=== PATIENT | female | born 1960 | race Caucasian/White ===

== ENCOUNTER → 2017-10-23 | Outpatient (CLI) | payer OTHER ==
[2017-10-23 14:11] LABS: BARBITURATES NEG (NEG); BENZODIAZEPINES POS (NEG); CANNABINOIDS POS (NEG); COCAINE NEG (NEG); METHADONE NEG (NEG); OPIATES NEG (NEG); PHENCYCLIDINE NEG (NEG)
[2017-10-23 14:12] LABS: AMPHETAMINE/METHAMPHETAMINE NEG (NEG); ETHANOL, URINE NEG (NEG)
[2017-10-23 14:28] LABS: ALBUMIN 4.1 g/dL (3.4-5.0); ALBUMIN/GLOBULIN RATIO 1.1 (1.0-1.7); ALK PHOS 74 U/L (46-116); ALT (SGPT) 17 U/L (14-59); ANION GAP 9 (6-14); AST (SGOT) 14 U/L (15-37); BLOOD UREA NITROGEN 21 mg/dL (7-20); BUN/CREATININE RATIO 19 (6-20); CALCIUM 9.6 mg/dL (8.5-10.1); CARBON DIOXIDE 27 mmol/L (21-32); CHLORIDE 105 mmol/L (98-107); CREATININE 1.1 mg/dL (0.6-1.0); GLUCOSE 88 mg/dL (70-99); POTASSIUM 4.7 mmol/L (3.5-5.1); SODIUM 141 mmol/L (136-145); TOTAL BILIRUBIN 0.3 mg/dL (0.2-1.0); TOTAL PROTEIN 7.8 g/dL (6.4-8.2)
[2017-10-23 14:38] LABS: THYROID STIM HORMONE (TSH) 0.613 uIU/mL (0.358-3.74)
[2017-10-23 15:28] LABS: SEDIMENTATION RATE 6 (0-25)
== END | disposition home or self-care (01) ==
LOC: US 12:59
DX: I73.9 Peripheral vascular disease, unspecified (principal); G43.009 Migraine without aura, not intractable, without status migrainosus
CPT/HCPCS: 36415; 80053; 80307; 84443; 85651; 93925

== ENCOUNTER → 2017-11-24 | Outpatient (CLI) | payer OTHER ==
--- NOTE | 2017-11-24 15:47 | KCIC ---
Carotid doppler ultrasound History: Blurred vision, migraine headaches Multiple grayscale, color, and duplex spectral analysis waveform sonographic images were acquired of the carotid, subclavian, and vertebral arteries. Comparison: None Findings: RIGHT: PSV cm/sec EDV cm/sec Common carotid artery 68 27 Maximal internal carotid artery 82 28 Subclavian artery External carotid artery 56 Vertebral artery 53 ICA/CCA ratio 124 LEFT: PSV cm/sec EDV cm/sec Common carotid artery 66 21 Maximum internal carotid artery 67 26 Subclavian artery External carotid artery 88 Vertebral artery 23 ICA/CCA ratio 1.24 Velocities used to determine stenosis are known to correlate with NASCET angiographic criteria. There is antegrade flow in the bilateral vertebral arteries. There is moderate plaque bilaterally of the carotid bulbs, no significant stenosis demonstrated on grayscale or color images. There is other scattered plaque of the proximal internal and external carotid arteries and common carotid arteries. Impression: 1. There is moderate plaque of the bilateral carotid bulbs. There is no evidence of a hemodynamically significant stenosis. Electronically signed by: Momo Cabral MD (11/24/2017 3:43 PM) [facility]
--- NOTE | 2017-11-24 17:08 | KCIC ---
UPPER EXT ARTERIAL BILAT History: Upper extremity ischemia, peripheral arterial disease Comparison: None. Findings: Multiple grayscale, color, duplex spectral analysis waveform images of the upper extremity arteries bilaterally are submitted. There are triphasic waveforms of the upper extremity arteries bilaterally other than monophasic waveform of the proximal right radial artery. Distal right radial artery could not be visualized on this exam. Otherwise no significant stenosis is demonstrated of the upper extremity arteries bilaterally. Velocities in cm/sec are as follows: Right: Proximal subclavian 85 Distal subclavian artery 77 Axillary 64 Proximal brachial C7 Distal brachial 76 Proximal radial 14 Proximal ulnar 55 Distal ulnar 45 Left: Proximal subclavian 88 Distal subclavian 59 Axillary 64 Proximal brachial 62 Distal brachial 74 Proximal radial 45 Distal radial 34 Proximal ulnar 26 Distal ulnar 34 Impression: 1. Distal right radial artery is not visualized and may be occluded, lower velocity of the proximal right radial artery. Remainder of the upper extremity arteries are patent. Electronically signed by: Momo Cabral MD (11/24/2017 5:04 PM) [facility]
== END | disposition home or self-care (01) ==
LOC: KCIC US 12:06
PROVIDERS: ATTEND Psychiatry & Neurology Neurology
DX: I65.23 Occlusion and stenosis of bilateral carotid arteries (principal); G43.009 Migraine without aura, not intractable, without status migrainosus
CPT/HCPCS: 93880

== ENCOUNTER → 2017-11-24 | Outpatient (CLI) | payer OTHER ==
--- NOTE | 2017-11-24 16:03 | KCIC ---
EXAM: Cervical spine, 6 views. HISTORY: Pain. COMPARISON: None. FINDINGS: Frontal, lateral, bilateral oblique and swimmer's and odontoid views of the cervical spine are obtained. There is no listhesis. The vertebral bob are normal in height and the disc spaces are preserved. There is advanced facet arthropathy at multiple levels. This results in foraminal stenosis at multiple levels. There is calcified atherosclerotic plaque within the carotid bifurcations. IMPRESSION: 1. Multilevel degenerative change throughout the cervical spine. 2. No acute osseous finding. Electronically signed by: Sharon Edward MD (11/24/2017 3:59 PM) [place] [id number]
== END | disposition home or self-care (01) ==
LOC: KCIC 13:46
PROVIDERS: ATTEND Internal Medicine
DX: M47.892 Other spondylosis, cervical region (principal); M12.88 Other specific arthropathies, not elsewhere classified, other specified site; M48.02 Spinal stenosis, cervical region; I65.23 Occlusion and stenosis of bilateral carotid arteries; G43.909 Migraine, unspecified, not intractable, without status migrainosus
CPT/HCPCS: 72050

== ENCOUNTER → 2018-01-20 | Outpatient (CLI) | payer OTHER ==
--- NOTE | 2018-01-20 14:28 | CARD ---
MR#: [id number] Date of Study: 01/20/2018 Ordering Physician: ELENA METZGER, Referring Physician: ELENA METZGER, Tech: Joselyn Quijano RDCS APPROVED REPORT EXAM: Two-dimensional and M-mode echocardiogram with Doppler and color Doppler. Other Information Quality : Good INDICATION Murmur 2D DIMENSIONS RVDd1.8 (2.9-3.5cm)Left Atrium(2D)2.4 (1.6-4.0cm) IVSd0.8 (0.7-1.1cm)Aortic Root(2D)2.1 (2.0-3.7cm) LVDd4.3 (3.9-5.9cm)LVOT Diameter2.0 (1.8-2.4cm) PWd0.8 (0.7-1.1cm)LVDs2.7 (2.5-4.0cm) FS (%) 35.9 %SV53.4 ml LVEF(%)65.8 (>50%) Aortic Valve AoV Peak Hermes.147.5cm/sAoV VTI24.9cm AO Peak GR.8.7mmHgLVOT Peak Hermes.120.3cm/s AO Mean GR.4mmHgAVA (VMAX)2.52cm2 LA (VTI)2.70cm2 Mitral Valve MV E Sstohuqu34.2cm/sMV DECEL [id number] MV A Rdijhrax15.1cm/sE/A Ratio0.9 Pulmonary Vein S1 Kmphdmfd71.9cm/sD2 Nitnfgou37.3cm/s LEFT VENTRICLE The left ventricle is normal size. There is normal left ventricular wall thickness. The left ventricu lar systolic function is normal. The Ejection Fraction is 55-60%. There is normal LV segmental wall m otion. . RIGHT VENTRICLE The right ventricle is normal size. The right ventricular systolic function is normal. ATRIA The left atrium size is normal. The right atrium size is normal. The interatrial septum is intact wit h no evidence for an atrial septal defect or patent foramen ovale as noted on 2-D or Doppler imaging. AORTIC VALVE The aortic valve is not well visualized but appears to be functioning normally by Doppler interrogati on. Doppler and Color Flow revealed no significant aortic regurgitation. There is no significant aort ic valvular stenosis. MITRAL VALVE The mitral valve is calcified but opens well. There is no evidence of mitral valve prolapse. There is no mitral valve stenosis. Doppler and Color-flow revealed trace mitral regurgitation. TRICUSPID VALVE The tricuspid valve is normal in structure and function. Doppler and Color Flow revealed no tricuspid valve regurgitation noted. There is no tricuspid valve stenosis. PULMONIC VALVE The pulmonic valve is not well visualized. Doppler and Color Flow revealed no pulmonic valvular regur gitation. There is no pulmonic valvular stenosis. GREAT VESSELS The aortic root is normal in size. The ascending aorta is normal in size. The IVC is normal in size a nd collapses >50% with inspiration. PERICARDIAL EFFUSION There is no evidence of significant pericardial effusion. Critical Notification Critical Value: No <Conclusion> The left ventricular systolic function is normal. The Ejection Fraction is 55-60%. There is normal LV segmental wall motion. Doppler and Color-flow revealed trace mitral regurgitation. There is no evidence of significant pericardial effusion. Signed by : Erich Combs, Electronically Approved : 01/20/2018 14:27:02
== END | disposition home or self-care (01) ==
LOC: ECHO 13:21
PROVIDERS: ATTEND Internal Medicine Cardiovascular Disease
DX: R01.1 Cardiac murmur, unspecified (principal)
CPT/HCPCS: 93306

== ENCOUNTER → 2018-02-11 | Outpatient (CLI) | payer OTHER ==
--- NOTE | 2018-02-11 11:47 | RAD ---
MRI of the cervical spine without contrast 02/11/2018 CLINICAL HISTORY: Neck pain with bilateral arm pain. TECHNIQUE: Unenhanced T1-weighted, T2-weighted and inversion recovery sagittal and gradient echo and T2-weighted axial images of the cervical spine were obtained. FINDINGS: Comparison made to radiographs of the cervical spine dated 11/24/2017. Images from the study are degraded by patient motion. Images from the study are degraded by patient motion. Mild lateral curvature of the cervical spine is seen convex to the right. There is straightening of the normal cervical lordosis. Degenerative signal changes are seen involving all of the disks of the cervical spine. The marrow signal of the visualized bony structures is within normal limits. Patchy areas of increased signal intensity are seen on the T2-weighted images and inversion recovery images involving the janeth which likely reflects areas of ischemic demyelination. No area of abnormal signal intensity is seen involving the cervical spinal cord. Moderate mucosal thickening is seen involving the sphenoid sinus. The axial images particularly degraded by patient motion. Degenerative changes consisting of minimal to mild generalized disc bulges and degenerative changes involving the uncovertebral and facet joints are seen throughout the cervical disc spaces. These findings do not result in definite areas of significant central spinal canal or neural foraminal stenosis. IMPRESSION: Degenerative changes are seen throughout the cervical spine as outlined above. These findings do not result in significant central spinal canal or neural foraminal stenosis. Electronically signed by: Ashwin Villalba MD (02/11/2018 11:44 AM) [facility]
--- NOTE | 2018-02-11 12:09 | RAD ---
MRI of the lumbar spine without contrast 02/11/2018 CLINICAL HISTORY: Low back pain which radiates down both legs. TECHNIQUE: Unenhanced T1-weighted and T2-weighted sagittal and axial and inversion recovery sagittal images of the lumbar spine were obtained. FINDINGS: Minimal S-shaped curvature of the thoracolumbar spine is seen. Mild to moderate anterolisthesis of L4 in relation to L5 is seen. Degenerative signal changes are seen involving the L2-3, L3-4, L4-5 and L5-S1 discs. Loss of height of the L4-5 disc is noted. Degenerative signal changes are seen in the marrow surrounding this disc. The conus medullaris is within normal limits in morphology, position, and signal characteristics. Perineural cysts are seen within the sacral spinal canal. These measure 1 to 1.1 cm in size. The L1-2 disc space is within normal limits. At the L2-3 disc space there is a mild generalized disc bulge. Degenerative changes are seen involving the facet joints bilaterally. Small facet joint effusions are seen. There is mild ligamentum flavum hypertrophy bilaterally. These findings when combined do not result in significant central spinal canal or neural foraminal stenosis. At the L3-4 disc space there is a mild generalized disc bulge. Degenerative changes are seen involving the facet joints bilaterally. There is mild ligamentum flavum hypertrophy bilaterally. These findings when combined do not result in significant central spinal canal or neural foraminal stenosis. At the L4-5 disc space there is a mild to moderate generalized disc bulge. Degenerative changes are seen involving the facet joints bilaterally. There is mild ligamentum flavum hypertrophy bilaterally. These findings when combined with the anterolisthesis at this level results in mild to moderate central spinal canal stenosis. Mild to moderate bilateral neural foraminal stenosis is seen. At the L5-S1 disc space there is a minimal generalized disc bulge. Degenerative changes are seen involving the facet joints bilaterally. These findings do not result in significant central spinal canal or neural foraminal stenosis. IMPRESSION: The changes of degenerative disc disease are seen throughout the lumbar spine. These findings result in mild to moderate central spinal canal stenosis with mild to moderate bilateral neural foraminal stenosis at L4-5. Electronically signed by: Ashwin Villalba MD (02/11/2018 12:06 PM) [facility]
== END | disposition home or self-care (01) ==
LOC: MRI 12:21
PROVIDERS: ATTEND Psychiatry & Neurology Neurology
DX: M47.892 Other spondylosis, cervical region (principal); M51.36 Other intervertebral disc degeneration, lumbar region; M48.061 Spinal stenosis, lumbar region without neurogenic claudication; R20.2 Paresthesia of skin; R20.0 Anesthesia of skin
CPT/HCPCS: 72141; 72148

== ENCOUNTER → 2018-02-23 | Outpatient (CLI) | payer OTHER ==
[~2018-02-23] MED LIST: REGADENOSON 0.4 MG/5 ML DISP.SYRIN. IV ONE
--- NOTE | 2018-02-23 14:12 | RAD ---
MR#: [id number] Date of Study: 02/23/2018 Ordering Physician: ELENA METZGER, Referring Physician: BENJAMÍN TRIPP Tech: Sharon Armas RT (R) (N) APPROVED REPORT Test Type: Pharmacological Stress Nurse/Tech: Alexandria Méndez R.N. Test Indications: c/p Cardiac History: COPD,htn, smoker Medications: See Electronic Medical Record Medical History: See Electronic Medical Record Resting ECG: SR Resting Heart Rate: 64 bpm Resting Blood Pressure: 118/73mmHg Pretest Chest Pain: No chest pain Nurse/Tech Notes S1S2, lungs CTA, pt states she has a small headache that is almost always present Consent: The procedure was explained to the patient in lay terms. Informed consent was witnessed. Franco eout was entered into [employer]. History and Stress Test performed by DANIEL Philippe, TRENT (R) (N) Pharm. Details Pharmacologic stress testing was performed using 0.4mg per 5ml of regadenoson given intravenously ove r 7-10 seconds. Stress Symptoms SOB, increased H/A, dizziness POST EXERCISE Reason for Termination: Infusion complete Max HR: 111 bpm Max Blood Pressure: 111/58mmHg Blood Pressure response to exercise: b/p briefly dropped long term through recovery period Heart Rate response to exercise: wnl Chest Pain: No. Arrhythmia: No. ST Change: No. INTERPRETATION Stress EKG Conclusion: Baseline EKG showed sinus rhythm. No ischemic changes at peak stress. No arr hythmias. Imaging Protocol IMAGE PROTOCOL: Rest Tc-99m/stress Tc-99m 1 day Rest: Stress: Viability: Radiopharm.Tc99m AxlfypgnvXo35f Sestamibi Hpyn71zZg 32mCi Duration 15min. 10min. Img Date 02/23/2018 02/23/2018 Inj-Img Btty74lan. 60min. Rest Admin Site:IV - Right AntecubitalAdministrator:DANIEL Philippe, TRENT (R)(N) Stress Admin Site: IV - Right AntecubitalAdministrator: DANIEL Philippe, ARRT (R)(N) STRESS DATA End Diast. Vol.47.0mlAv. Heart Rate72.0bpm End Syst. Vol.11.0mlCO Index BSA0.0L/min Myocardial Mass87.0gEject. Xnvkyese58.0% Stress Rates Pk. Fill Rate3.64EDV/secLVtime Pk. Fill 250.63msec Pk. Empty Rate5.44ESV/secLVtime Pk. Meahy186.51msec 1/3 Pk. Fill1.31EDV/sec Stress Scores Regional WT0.00Summed WT0.00 Regional WM0.00Summed WM1.00 Study quality was good. Left Ventricular size was Normal at Rest and Stress. Lung uptake was . Left Ventricular ejection fraction is 77%. The rest and stress images show normal perfusion, normal contraction and thickening. LV Perf. Quant 17 Seg. SSS0.00 17 Seg. SRS0.00 17 Seg. SDS0.00 Stress Defect Extent (% LAD)0.00Rest Defect Extent (% LAD)0.00Rev. Defect Extent (% LAD)0.00 Stress Defect Extent (% LCX) 0.00Rest Defect Extent (% LCX)0.00Rev. Defect Extent (% LCX)0.00 Stress Defect Extent (% RCA)0.00Rest Defect Extent (% RCA)0.00Rev. Defect Extent (% RCA)0.00 Stress Defect Extent (% ANA)0.00Rest Defect Extent (% ANA)0.00Rev. Defect Extent (% ANA)0.00 Conclusion 1. Regadenoson cardioisotope stress test did not show any evidence of ischemia or infarct. 2. Normal left ventricular systolic function with ejection fraction calculated at 77%. 3. Low risk for cardiac events. Signed by : Erich Combs, Electronically Approved : 02/23/2018 14:11:19
== END | disposition home or self-care (01) ==
LOC: NM 10:36
PROVIDERS: ATTEND Internal Medicine Cardiovascular Disease
DX: R07.9 Chest pain, unspecified (principal); R51 Headache; R42 Dizziness and giddiness; J44.9 Chronic obstructive pulmonary disease, unspecified; I10 Essential (primary) hypertension; F17.200 Nicotine dependence, unspecified, uncomplicated
CPT/HCPCS: 78452; 93017; 96374; 96375; 96376; A9500; J2785

== ENCOUNTER 2018-04-23 10:48 | Emergency (ER) | payer OTHER ==
[~2018-04-23] VITALS: Ht 152.4 cm; Wt 54.4 kg
[~2018-04-23 10:48] MED LIST changes: +AMLO10TA6; +LISI10TA2; +METO50TA6; -REGADENOSON 0.4 MG/5 ML DISP.SYRIN. IV ONE
--- NOTE | 2018-04-23 11:28 | PHYS DOC ---
Past Medical History Past Medical History: Anxiety, Hypertension, Other Additional Past Medical Histor: CHRONIC BACK PAIN Past Surgical History: Other Additional Past Surgical Histo: ANKLE Additional Information: 0.25 PPD Alcohol Use: None Drug Use: None Adult General Chief Complaint Chief Complaint: HYPERTENSION HPI HPI Patient is a 57 year old female with history of hypertension, anxiety, chronic low back pain, who presents today complaining of elevated blood pressure. Patient states she went to Dr. Yepez's office for steroid injection to her back. She states her blood pressure was taken and it was 188/104. Patient states she was also slightly dizzy and had a mild generalized headache. She states the headache is not unusual for her. Patient states she had just taken her blood pressure medications prior to going to Dr. Yepez's office. She states she tried asking them to wait before they send her to the ED but they requested she comes to the ED to be evaluated. Patient states most of her symptoms are resolving. Patient denies any chest pain or shortness of breath. Review of Systems Review of Systems Constitutional: Denies fever or chills [] Eyes: Denies change in visual acuity, redness, or eye pain [] HENT: Denies nasal congestion or sore throat [] Respiratory: Denies cough or shortness of breath [] Cardiovascular: Reports high blood pressure GI: Denies abdominal pain, nausea, vomiting, bloody stools or diarrhea [] : Denies dysuria or hematuria [] Musculoskeletal: Denies back pain or joint pain [] Integument: Denies rash or skin lesions [] Neurologic: Reports dizziness and headache, denies focal weakness or sensory changes [] All other systems were reviewed and found to be within normal limits, except as documented in this note. Allergies Allergies Allergies Coded Allergies Type Severity Reaction Last Updated Verified Penicillins Allergy Intermediate 02/23/18 Yes Physical Exam Physical Exam Constitutional: Well developed, well nourished, no acute distress, non-toxic appearance. [] HENT: Normocephalic, atraumatic, bilateral external ears normal, oropharynx moist, no oral exudates, nose normal. [] Eyes: PERRLA, EOMI, conjunctiva normal, no discharge. [] Neck: Normal range of motion, no tenderness, supple, no stridor. [] Cardiovascular:Heart rate regular rhythm, no murmur [] Lungs & Thorax: Bilateral breath sounds clear to auscultation [] Abdomen: Bowel sounds normal, soft, no tenderness, no masses, no pulsatile masses. [] Skin: Warm, dry, no erythema, no rash. [] Back: No tenderness, no CVA tenderness. [] Extremities: No tenderness, no cyanosis, no clubbing, ROM intact, no edema. [] Neurologic: Alert and oriented X 3, normal motor function, normal sensory function, no focal deficits noted. Cranial nerves II-XII intact. Psychologic: Affect normal, judgement normal, mood normal. [] Current Patient Data Vital Signs Vital Signs Date Time Temp Pulse Resp B/P (MAP) Pulse Ox O2 Delivery O2 Flow Rate FiO2 04/23/18 12:54 76 98 04/23/18 10:55 98.1 18 160/97 (118) Room Air 98.1 Lab Values Laboratory Tests Test 04/23/18 11:35 04/23/18 12:30 White Blood Count 5.9 x10^3/uL (4.0-11.0) Red Blood Count 3.95 x10^6/uL (3.50-5.40) Hemoglobin 13.7 g/dL (12.0-15.5) Hematocrit 40.3 % (36.0-47.0) Mean Corpuscular Volume 102 fL (79-100) H Mean Corpuscular Hemoglobin 35 pg (25-35) Mean Corpuscular Hemoglobin Concent 34 g/dL (31-37) Red Cell Distribution Width 13.8 % (11.5-14.5) Platelet Count 456 x10^3/uL (140-400) H Neutrophils (%) (Auto) 85 % (31-73) H Lymphocytes (%) (Auto) 10 % (24-48) L Monocytes (%) (Auto) 3 % (0-9) Eosinophils (%) (Auto) 2 % (0-3) Basophils (%) (Auto) 1 % (0-3) Neutrophils # (Auto) 5.0 x10^3uL (1.8-7.7) Lymphocytes # (Auto) 0.6 x10^3/uL (1.0-4.8) L Monocytes # (Auto) 0.1 x10^3/uL (0.0-1.1) Eosinophils # (Auto) 0.1 x10^3/uL (0.0-0.7) Basophils # (Auto) 0.0 x10^3/uL (0.0-0.2) Segmented Neutrophils % 86 % (35-66) H Lymphocytes % 10 % (24-48) L Monocytes % 2 % (0-10) Eosinophils % 2 % (0-5) Platelet Estimate Increased (ADEQUATE) Sodium Level 141 mmol/L (136-145) Potassium Level 4.0 mmol/L (3.5-5.1) Chloride Level 104 mmol/L (98-107) Carbon Dioxide Level 27 mmol/L (21-32) Anion Gap 10 (6-14) Blood Urea Nitrogen 11 mg/dL (7-20) Creatinine 0.8 mg/dL (0.6-1.0) Estimated GFR (Cockcroft-Gault) 73.7 BUN/Creatinine Ratio 14 (6-20) Glucose Level 102 mg/dL (70-99) H Calcium Level 10.0 mg/dL (8.5-10.1) Magnesium Level 1.9 mg/dL (1.8-2.4) Total Bilirubin 0.1 mg/dL (0.2-1.0) L Aspartate Amino Transferase (AST) 18 U/L (15-37) Alanine Aminotransferase (ALT) 26 U/L (14-59) Alkaline Phosphatase 99 U/L (46-116) Troponin I Quantitative < 0.017 ng/mL (0.000-0.055) DC-Tnc-A-Type Natriuretic Peptide 100 pg/mL (0-124) Total Protein 7.7 g/dL (6.4-8.2) Albumin 3.1 g/dL (3.4-5.0) L Albumin/Globulin Ratio 0.7 (1.0-1.7) L Thyroid Stimulating Hormone (TSH) 0.586 uIU/mL (0.358-3.74) Urine Collection Type Unknown Urine Color Yellow Urine Clarity Clear Urine pH 5.0 Urine Specific [place] 1.015 Urine Protein Negative mg/dL (NEG-TRACE) Urine Glucose (UA) Negative mg/dL (NEG) Urine Ketones (Stick) Negative mg/dL (NEG) Urine Blood Small (NEG) Urine Nitrite Negative (NEG) Urine Bilirubin Negative (NEG) Urine Urobilinogen Dipstick 0.2 mg/dL (0.2 mg/dL) Urine Leukocyte Esterase Negative (NEG) Urine RBC Occ /HPF (0-2) Urine WBC Occ /HPF (0-4) Urine Squamous Epithelial Cells Few /LPF Urine Bacteria 0 /HPF (0-FEW) Urine Mucus Slight /LPF Urine Opiates Screen Pos (NEG) Urine Methadone Screen Neg (NEG) Urine Barbiturates Pos (NEG) Urine Phencyclidine Screen Neg (NEG) Urine Amphetamine/Methamphetamine Neg (NEG) Urine Benzodiazepines Screen Neg (NEG) Urine Cocaine Screen Neg (NEG) Urine Cannabinoids Screen Pos (NEG) Urine Ethyl Alcohol Neg (NEG) Laboratory Tests 04/23/18 11:35 Laboratory Tests 04/23/18 11:35 EKG EKG [] Radiology/Procedures Radiology/Procedures []PROCEDURE: PORTABLE CHEST 1V EXAM: CHEST 1 VIEW History: Hypertension COMPARISON: None available. TECHNIQUE: Single portable radiograph of the chest FINDINGS: The cardiac silhouette is unremarkable. The lungs are clear bilaterally. The costophrenic sulci are clear and well demarcated. IMPRESSION: No radiographic evidence of an acute cardiopulmonary process. Electronically signed by: Will Blue MD (04/23/2018 1:28 PM) [facility] DICTATED and SIGNED BY: WILL BLUE MD DATE: 04/23/18 1325 PROCEDURE: CT HEAD WO CONTRAST EXAM: CT Head without IV contrast CLINICAL HISTORY: HTN SALAZAR right-sided NUMBNESS COMPARISON: None. TECHNIQUE: Routine CT of the head without contrast. Soft tissues and bone windows were reviewed. PQRS compliance statement - One or more of the following individualized dose reduction techniques were utilized for this study: 1. Automated exposure control 2. Adjustment of the mA and/or kV according to patient size 3. Use of iterative reconstruction technique FINDINGS: There is no evidence of hemorrhage, mass or extra-axial fluid collection. Smith-white differentiation is maintained with no evidence of edema. There is no mass effect or shift of the intracranial structures. The ventricles, basilar cisterns and cortical sulci are normal in size and configuration for the patients stated age. The cerebellum and brainstem are unremarkable. The calvarium demonstrates no evidence of fracture or focal lesion. Left sphenoid sinus opacification may be seen with sinusitis. Otherwise, there is normal aeration of the visualized paranasal sinuses and mastoid air cells. The visualized portions of the orbits are normal. Atherosclerotic calcifications of the intracranial internal carotid and vertebral arteries is seen. IMPRESSION: 1. No evidence for acute intracranial process. 2. Left sphenoid sinus opacification may be seen with sinusitis. Electronically signed by: Alessio Ruvalcaba MD (04/23/2018 11:45 AM) [id number] DICTATED and SIGNED BY: ALESSIO RUVALCABA MD DATE: 04/23/18 1143 Course & Med Decision Making Course & Med Decision Making Pertinent Labs and Imaging studies reviewed. (See chart for details) This is a 57-year-old female patient presenting to the ED today with complaints of high blood pressure that was noted at Dr. Yepez's office. She was there for injection to her back, she also complained of a headache and dizziness on the doctor's office. BP on arrival to the ED when I was in the room is 154/94. She states she is feeling better. CBC CMP troponin and EKG chest x-ray CT of the head were negative for any acute findings. Blood pressure was in the 130s over 60s. Patient states her symptoms are completely resolved. She was discharged to home. Dragon Disclaimer Dragon Disclaimer This electronic medical record was generated, in whole or in part, using a voice recognition dictation system. Departure Departure Impression: Primary Impression: Hypertension Disposition: HOME, SELF-CARE Condition: STABLE Referrals: CLIFTON ACEVES MD (PCP) follow up in 1 week Patient Instructions: Hypertension Additional Instructions: You were evaluated in the emergency room for high blood pressure. Continue taking your blood pressure medications as prescribed by your doctor. Follow-up with your own PCP in 1-2 weeks. Come back to the ED at any point symptoms worsen. Problem Qualifiers Primary Impression: Hypertension Hypertension type: unspecified Qualified Codes: I10 - Essential (primary) hypertension JAZMIN AYALA [employer]GER Apr 23, 2018 11:28
--- NOTE | 2018-04-23 11:31 | EKG ---
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
--- NOTE | 2018-04-23 11:49 | RAD ---
EXAM: CT Head without IV contrast CLINICAL HISTORY: HTN SALAZAR right-sided NUMBNESS COMPARISON: None. TECHNIQUE: Routine CT of the head without contrast. Soft tissues and bone windows were reviewed. PQRS compliance statement - One or more of the following individualized dose reduction techniques were utilized for this study: 1. Automated exposure control 2. Adjustment of the mA and/or kV according to patient size 3. Use of iterative reconstruction technique FINDINGS: There is no evidence of hemorrhage, mass or extra-axial fluid collection. Smith-white differentiation is maintained with no evidence of edema. There is no mass effect or shift of the intracranial structures. The ventricles, basilar cisterns and cortical sulci are normal in size and configuration for the patients stated age. The cerebellum and brainstem are unremarkable. The calvarium demonstrates no evidence of fracture or focal lesion. Left sphenoid sinus opacification may be seen with sinusitis. Otherwise, there is normal aeration of the visualized paranasal sinuses and mastoid air cells. The visualized portions of the orbits are normal. Atherosclerotic calcifications of the intracranial internal carotid and vertebral arteries is seen. IMPRESSION: 1. No evidence for acute intracranial process. 2. Left sphenoid sinus opacification may be seen with sinusitis. Electronically signed by: Alessio Goff MD (04/23/2018 11:45 AM) [id number]
[2018-04-23 11:59] LABS: CREATININE 0.8 mg/dL (0.6-1.0); GFR 73.7
[2018-04-23 12:08] LABS: BASO % 1 % (0-3); EOS # 0.1 x10^3/uL (0.0-0.7); EOS % 2 % (0-3); HEMATOCRIT 40.3 % (36.0-47.0); HEMOGLOBIN 13.7 g/dL (12.0-15.5); LYMPH # 0.6 x10^3/uL (1.0-4.8); LYMPH % 10 % (24-48); MEAN CORPUSCULAR HEMOGLOBIN 35 pg (25-35); MEAN CORPUSCULAR HGB CONC 34 g/dL (31-37); MEAN CORPUSCULAR VOLUME 102 fL (79-100); MONO # 0.1 x10^3/uL (0.0-1.1); MONO % 3 % (0-9); NEUT % 85 % (31-73); PLATELET COUNT 456 x10^3/uL (140-400); RED BLOOD COUNT 3.95 x10^6/uL (3.50-5.40); RED CELL DISTRIBUTION WIDTH 13.8 % (11.5-14.5); WHITE BLOOD COUNT 5.9 x10^3/uL (4.0-11.0)
[2018-04-23 12:10] LABS: ALBUMIN 3.1 g/dL (3.4-5.0); ALBUMIN/GLOBULIN RATIO 0.7 (1.0-1.7); MAGNESIUM 1.9 mg/dL (1.8-2.4); TOTAL BILIRUBIN 0.1 mg/dL (0.2-1.0); TOTAL PROTEIN 7.7 g/dL (6.4-8.2)
[2018-04-23 12:35] LABS: % EOS 2 % (0-5); % LYMPHS 10 % (24-48); % MONOS 2 % (0-10); % SEGS 86 % (35-66); PLT ESTIMATE INCREASED (ADEQUATE)
[2018-04-23 12:39] LABS: BILIRUBIN,URINE NEGATIVE (NEG); CLARITY,URINE CLEAR; COLOR,URINE YELLOW; NITRITE,URINE NEGATIVE (NEG); PROTEIN,URINE NEGATIVE (NEG-TRACE); UROBILINOGEN,URINE 0.2 mg/dL (0.2 mg/dL)
[2018-04-23 12:46] LABS: BARBITURATES POS (NEG); BENZODIAZEPINES NEG (NEG); CANNABINOIDS POS (NEG); COCAINE NEG (NEG); METHADONE NEG (NEG); OPIATES POS (NEG); PHENCYCLIDINE NEG (NEG)
[2018-04-23 12:47] LABS: AMPHETAMINE/METHAMPHETAMINE NEG (NEG)
[2018-04-23 12:54] LABS: BACTERIA,URINE 0 /HPF (0-FEW); RBC,URINE OCC /HPF (0-2); SQUAMOUS EPITHELIAL CELL,UR FEW /LPF; WBC,URINE OCC /HPF (0-4)
--- NOTE | 2018-04-23 13:33 | RAD ---
EXAM: CHEST 1 VIEW History: Hypertension COMPARISON: None available. TECHNIQUE: Single portable radiograph of the chest FINDINGS: The cardiac silhouette is unremarkable. The lungs are clear bilaterally. The costophrenic sulci are clear and well demarcated. IMPRESSION: No radiographic evidence of an acute cardiopulmonary process. Electronically signed by: Will Blue MD (04/23/2018 1:28 PM) [id number]
[2018-04-23 13:54] VITALS: BP 143/83
== END 2018-04-23 14:20 | disposition home or self-care (01) ==
LOC: ER 10:48
DX: I10 Essential (primary) hypertension (principal); R42 Dizziness and giddiness; R51 Headache; F41.9 Anxiety disorder, unspecified; G89.29 Other chronic pain; F17.200 Nicotine dependence, unspecified, uncomplicated; Z88.0 Allergy status to penicillin
CPT/HCPCS: 36415; 70450; 71045; 80053; 80307; 81001; 83735; 83880; 84443; 84484; 85007; 85025; 93005; 99284-25

== ENCOUNTER → 2019-03-10 | Day surgery (SDC) | payer MEDICAID ==
[~2019-03-10] VITALS: Ht 149.9 cm; Wt 52.6 kg
[~2019-03-10] MED LIST changes: -AMLO10TA6; +AMLO10TA8; +BUDE10.2 IH; +BUPIVACAINE MPF 0.5% 30 ML VIAL. ONE; +BUTA1CAP61 PO; +CLINDAMYCIN 900MG PREMIX 50 ML IV PRN; +CLONAZEPAM1 MG PO; +DEXAMETHASONE SOD PHOS 4 MG/ML VIAL ONE; +GABA600T7 PO; +HYDROcodone/APAP 5/325MG 1 TAB TABLET PO ONE; +HYDROmorphone 2 MG/ML VIAL IV PRN; +IV RINGERS,LACTATED 1000ML 1,000 ML IV SCH; +LIDOCAINE 1% 20 ML VIAL. ONE; +LIDOCAINE 1% PF 2 ML VIAL. ID PRN; +LIDOCAINE 2% PF 5 ML VIAL. ONE; +MORPHINE SULFATE 2 MG/ML VIAL. IV PRN; +ONDANSETRON PF 4 MG/2 ML VIAL. IV PRN; +ONDANSETRON PF 4 MG/2 ML VIAL. ONE; +PROCHLORPERAZINE 10 MG/2 ML VIAL. IV PRN; +PROPOFOL 20 ML IV ONE; +SERT100T PO; +SEVOFLURANE 31 TO 60 MINUTES. IH ONE; +TIZA4TAB2 PO; +TOPI50TA38 PO; +VENTOLIN HFA18 GM INH; +ePHEDrine PF IN SALINE 50 MG/10 ML SYRINGE. IV ONE; +fentaNYL PF VIAL 100 MCG/2 ML VIAL IV PRN; +fentaNYL PF VIAL 100 MCG/2 ML VIAL ONE
--- NOTE | 2019-03-10 10:47 | PDOC4 ---
Operative Note Operative Note Date of procedure: 03/10/2019 Surgeon: Tyler Gonzalezt.: none Preoperative diagnosis #1 right cubital tunnel syndrome #2 right carpal tunnel syndrome Postoperative diagnosis: #1 right cubital tunnel syndrome #2 right carpal tunnel syndrome Procedures performed: #1 open right cubital tunnel release with subcutaneous transposition #2 open right carpal tunnel release Anesthesia: Gen. Blood loss: 20 mL Tourniquet time: Less than 30 minutes Complications: None Reason for procedure: Patient is a very pleasant 58-year-old female who has had long-standing paresthesias in bilateral upper extremities, right greater than left, who presented to my outpatient orthopedic surgery clinic and we discussed her clinical exam, history, failure conservative therapies and the EMG findings. We discussed the risks, benefits, alternatives to surgery and she wished to proceed. Description of procedure: Patient was greeted in the preoperative area by myself for the correct extremity was verified and marked.She was taken back to the operative suite and started on her antibiotics as she was brought back. Once in the operating room, she was transferred gently supine to the operative room table and secured to the bed with all pressure points padded. She then underwent successful induction of a general anesthetic. We applied a nonsterile tourniquet to her right upper extremity and taped in place. Right upper extremity was then prepped and draped in our usual sterile fashion we conducted our standard preoperative timeout. After this, I palpated and marked surface anatomy and michelle a line for my cubital tunnel incision. I then exsanguinated the extremity with an Esmarch and insufflated tourniquet to 250 mmHg. After this, I directed my attention to the carpal tunnel portion of the procedure. I incised skin with a scalpel and dissected subcutaneous tissue with a hemostat. I placed my self retaining retractor, used bipolar cautery to cauterize a couple bleeders, and incised her palmar fascia in line with the skin incision. I then replaced my self-retaining retractor and identified her transverse carpal ligament and release this with a scalpel. I then placed a Ragnell retractor and the distal portion the incision, used a tenotomy scissors to spread above and below small remaining portion of the transverse carpal ligament and release this as well. I then repeated this maneuver and an ulnar directed fashion to release the distal antebrachial fascia at the proximal portion of the patient's carpal tunnel incision. I then used the tip of the tenotomies to palpate along the course of the median nerve and encountered no areas that had not been released. This area was then irrigated out and I closed skin with 3-0 nylon in mattress fashion. I then infiltrated the keshia-incisional soft tissues with local anesthetic and applied a soft bulky sterile dressing. We then directed our attention to the cubital tunnel portion of the surgery. I incised skin around her medial epicondyle, slightly posterior to this. Skin was incised with a scalpel and then I used tenotomies and bipolar cautery to dissect subcutaneous tissue. Identified the roof of her cubital tunnel and open this. I then released the roof of his cubital tunnel and continue my release up to the arcade of Fine. I then directed my attention to the distal portion of the release and continued continued releasing the roof of his cubital tunnel into the aponeurosis of the 2 heads of his FCU. After this, I took his elbow through range of motion and noted that her ulnar nerve wanted to sublux over the medial epicondyle. Due to this, I then dissected the ulnar nerve free to mobilize it adequately, leading at rest anterior to the medial epicondyle. I then repositioned the ulnar nerve and used a slip of fascia about 2-2-1/2 cm in length and width. After this, I transpose the ulnar nerve and used 2-0 Vicryl to secure the fascia and the subcutaneous tissue maintaining the ulnar nerve in a tension-free bed without any sharp curves. We then let tourniquet down I cauterized some bleeders in the subcutaneous tissue with bipolar cautery. After this, I closed subcutaneous tiss ue with inverted interrupted 2-0 Vicryl followed by running 4-0 Monocryl in a subcuticular fashion. Prior to wound closure, all counts were correct 2 at both sites. I then injected local anesthetic mixture around the posterior aspect of the ulnar incision. This area was cleansed and dried and a soft sterile bulky dressing was applied followed by cast padding and an Faisal wrap. She tolerated surgery well. No complications. At the conclusion, she was awakened and transferred supine to the recovery room cart and taken to PACU stable and extubated condition. Postoperative plan is to discharge her home, wound care was given verbal and written form. I will see her back here in 2 weeks, sooner should a problem arise TYLER LING II, MD Mar 10, 2019 10:47
--- NOTE | 2019-03-10 10:49 | DISCH ---
DISCHARGE INSTRUCTIONS Condition on Discharge Condition on Discharge: Stable Activity After Discharge Activity Instructions for Disc: Activity as tolerated Bathing Instructions: Shower-keep dressing dry Lifting Instructions after Dis: No heavy lifting, No pulling or pushing Weight Bearing Status after Di: Full weight bearing Diet after Discharge Diet after Discharge: Regular Wound Incision Care Wound/Incision Care: Ice to area for comfort, Keep wound/cast CDI, Keep wound elevated, No wound care needed Other wound/incision instructi: okay to change dressing after 3-4 days Contacting the DRDeya after DC Call your doctor for: Concerns you may have Follow-Up Follow up with: Matthew in 2 weeks BHAVIN LING II, MD Mar 10, 2019 10:49
[2019-03-10 11:25] VITALS: BP 139/83
== END ==
LOC: SURG 07:07
PROVIDERS: ATTEND Orthopaedic Surgery Sports Medicine
DX: G56.01 Carpal tunnel syndrome, right upper limb (principal); G56.21 Lesion of ulnar nerve, right upper limb; J44.9 Chronic obstructive pulmonary disease, unspecified; F41.9 Anxiety disorder, unspecified; F32.9 Major depressive disorder, single episode, unspecified; D64.9 Anemia, unspecified; I10 Essential (primary) hypertension; E78.00 Pure hypercholesterolemia, unspecified; Z87.891 Personal history of nicotine dependence; Z86.73 Personal history of transient ischemic attack (TIA), and cerebral infarction without residual deficits; Z98.890 Other specified postprocedural states; Z90.710 Acquired absence of both cervix and uterus
CPT/HCPCS: 64718; 64721; A7015; J0171; J1100; J2001; J2405; J2704; J3010; J3490

== ENCOUNTER → 2019-05-05 | Outpatient (CLI) | payer MEDICAID, OTHER ==
[2019-03-10 11:25] VITALS: BP 139/83
[~2019-05-05] MED LIST changes: -BUPIVACAINE MPF 0.5% 30 ML VIAL. ONE; -CLINDAMYCIN 900MG PREMIX 50 ML IV PRN; -DEXAMETHASONE SOD PHOS 4 MG/ML VIAL ONE; -HYDROcodone/APAP 5/325MG 1 TAB TABLET PO ONE; -HYDROmorphone 2 MG/ML VIAL IV PRN; -IV RINGERS,LACTATED 1000ML 1,000 ML IV SCH; -LIDOCAINE 1% 20 ML VIAL. ONE; -LIDOCAINE 1% PF 2 ML VIAL. ID PRN; -LIDOCAINE 2% PF 5 ML VIAL. ONE; -MORPHINE SULFATE 2 MG/ML VIAL. IV PRN; -ONDANSETRON PF 4 MG/2 ML VIAL. IV PRN; -ONDANSETRON PF 4 MG/2 ML VIAL. ONE; -PROCHLORPERAZINE 10 MG/2 ML VIAL. IV PRN; -PROPOFOL 20 ML IV ONE; -SEVOFLURANE 31 TO 60 MINUTES. IH ONE; -ePHEDrine PF IN SALINE 50 MG/10 ML SYRINGE. IV ONE; -fentaNYL PF VIAL 100 MCG/2 ML VIAL IV PRN; -fentaNYL PF VIAL 100 MCG/2 ML VIAL ONE
--- NOTE | 2019-05-05 10:35 | RAD ---
MRI Brain without contrast History: Ataxia, right-sided weakness Technique: Multiplanar, multisequential noncontrast MR imaging was performed of the brain. Comparison: None Findings: There is motion degradation. There is no evidence of recent infarct or cytotoxic edema. Ventricular size is within normal limits. There is mild prominence of the supratentorial subarachnoid spaces of uncertain chronicity.There is no significant midline shift, intraaxial mass effect, or focal abnormal extra-axial fluid collection. There is more confluent moderate to severe T2 and FLAIR hyperintense abnormality of the janeth greater centrally. There is scattered overall mild T2 and FLAIR hyperintense abnormality of the supratentorial parenchyma bilaterally, largest focus of the right allred radiata. There is preservation of the major intracranial flow-voids at the skull base. The mastoid air cells are aerated. The cerebellar tonsils are normal in location. There is no significant abnormality of the pineal gland or pituitary gland. Paranasal sinuses are overall aerated. There is preserved marrow signal of the clivus. Impression: 1. There is no evidence of recent infarct. There is more confluent T2 and FLAIR hyperintense signal abnormality of the janeth greater centrally and also other mild signal abnormality of the supratentorial parenchyma bilaterally. Findings are nonspecific, consideration of sequela of chronic microvascular ischemic disease especially if risk factors such as hypertension or diabetes. Sequela of an inflammatory demyelinating disease is not excluded although not classic distribution of signal change. Regarding the more confluent signal normality of the more central janeth, imaging findings can be associated with osmotic demyelination syndrome in the appropriate clinical setting. Electronically signed by: Momo Cabral MD (05/05/2019 10:32 AM) [id number]
== END | disposition home or self-care (01) ==
LOC: MRI 09:35
PROVIDERS: ATTEND Psychiatry & Neurology Neurology
DX: R53.1 Weakness (principal); R27.0 Ataxia, unspecified
CPT/HCPCS: 70551

== ENCOUNTER → 2019-05-05 | Outpatient (CLI) | payer OTHER ==
[2019-03-10 11:25] VITALS: BP 139/83
[2019-05-05 11:05] LABS: CALCIUM 8.9 mg/dL (8.5-10.1); CHOLESTEROL/HDL RATIO 2.5; CREATININE 0.9 mg/dL (0.6-1.0); GFR 64.1; POTASSIUM 3.8 mmol/L (3.5-5.1)
== END | disposition home or self-care (01) ==
LOC: LAB 09:41
PROVIDERS: ATTEND Internal Medicine
DX: I10 Essential (primary) hypertension (principal); E78.5 Hyperlipidemia, unspecified
CPT/HCPCS: 36415; 80048; 80061

== ENCOUNTER 2021-03-18 21:14 | Emergency (ER) | payer OTHER ==
[~2021-03-18] VITALS: Ht 152.4 cm; Wt 54.0 kg
[~2021-03-18 21:14] MED LIST changes: +AMLO-187; -AMLO10TA8; +LISI10TA16; -LISI10TA2; +TIZA-75 PO; -TIZA4TAB2 PO
[2021-03-18] MEDS ORDERED: ACETAMINOPHEN 500 MG TABLET PO ONE (21:15)
--- NOTE | 2021-03-18 21:26 | ED.ADGEN ---
Past Medical History Past Medical History: Anxiety, Hypertension, Other Additional Past Medical Histor: CHRONIC BACK PAIN Past Surgical History: Other Additional Past Surgical Histo: ANKLE Smoking Status: Current Every Day Smoker Alcohol Use: None Drug Use: None General Adult EDM: Chief Complaint: FLU SYMPTOM HPI: HPI: Patient is a 60 year old female coming in via EMS from home for cold symptoms. Patient states she did not call but thinks her daughter wayne states that she was not feeling well. Patient states started feeling bad yesterday with a headache, chills, body aches, and soft stools. Patient has a baseline "smoker's cough" that is unchanged. Has a history of hypertension says she has been compliant her medications. Has not had her influenza or Covid vaccines. Review of Systems: Review of Systems: All other systems within normal limits except for as noted in the HPI Current Medications: Current Medications Medications (Trade) Dose Ordered Sig/Marguerite Start Time Stop Time Status Last Admin Dose Admin Acetaminophen (Tylenol) 1,000 mg 1X ONCE 03/18/21 21:15 03/18/21 21:18 DC 03/18/21 21:28 1,000 MG Allergies: Allergies: Allergies Coded Allergies Type Severity Reaction Last Updated Verified Penicillins Allergy Intermediate 03/10/19 Yes Physical Exam: PE: Constitutional: Well developed, well nourished, no acute distress, non-toxic appearance. [] HENT: Normocephalic, atraumatic, bilateral external ears normal, nose normal. [] Eyes: PERRLA, conjunctiva normal, no discharge. [] Neck: No rigidity, supple, no stridor. [] Cardiovascular: Regular rate and rhythm, brisk cap refill [] Lungs & Thorax: Non labored symmetric respirations, no tachypnea or respiratory distress [] Abdomen: Soft, nondistended. Skin: Warm, dry, no erythema, no rash. [] Back: Unremarkable Extremities: No deformities, range of motion grossly intact, no lower extremity edema [] Neurologic: Alert and oriented X 3, no focal deficits noted. [] Psychologic: Affect normal, judgement normal, mood normal. [] Current Patient Data: Labs: Laboratory Tests Test 03/18/21 21:15 03/18/21 21:26 Influenza Type A Antigen Negative (NEGATIVE) Influenza Type B Antigen Negative (NEGATIVE) Urine Collection Type Unknown Urine Color Yellow Urine Clarity Clear Urine pH 6.0 (<5.0-8.0) Urine Specific Hansen 1.020 (1.000-1.030) Urine Protein 30 mg/dL (NEG-TRACE) Urine Glucose (UA) Negative mg/dL (NEG) Urine Ketones (Stick) Negative mg/dL (NEG) Urine Blood Moderate (NEG) Urine Nitrite Negative (NEG) Urine Bilirubin Negative (NEG) Urine Urobilinogen Dipstick 0.2 mg/dL (0.2 mg/dL) Urine Leukocyte Esterase Negative (NEG) Urine RBC 11-20 /HPF (0-2) Urine WBC Occ /HPF (0-4) Urine Squamous Epithelial Cells Mod /LPF Urine Bacteria 0 /HPF (0-FEW) Vital Signs: Vital Signs Date Time Temp Pulse Resp B/P (MAP) Pulse Ox O2 Delivery O2 Flow Rate FiO2 03/18/21 21:14 97.5 99 22 171/109 (129) 91 Room Air 97.5 EKG: EKG: [] Heart Score: C/O Chest Pain: No Risk Factors: Risk Factors: DM, Current or recent (<one month) smoker, HTN, HLP, family history of CAD, obesity. Risk Scores: Score 0 - 3: 2.5% MACE over next 6 weeks - Discharge Home Score 4 - 6: 20.3% MACE over next 6 weeks - Admit for Clinical Observation Score 7 - 10: 72.7% MACE over next 6 weeks - Early Invasive Strategies Radiology/Procedures: Radiology/Procedures: [facility] [address] [place] [address] IMAGING REPORT Signed PATIENT: SABRINA GAVINRUST: [id number] : 1960 LOCATION: ER AGE: 60 SEX: F EXAM STATUS: REG ER ORD. PHYSICIAN: ROSALIO RAMEY MD REASON: pna PROCEDURE: CHEST AP ONLY XR CHEST 1V 03/18/2021 9:36 PM INDICATION: Pneumonia COMPARISON: 04/23/2018 TECHNIQUE: Portable frontal view of the chest is provided. FINDINGS: The cardiomediastinal silhouette is within normal limits. There is patchy opacity in the lingula. There are no significant pleural effusions. There is no pulmonary vascular congestion. No pneumothorax. No suspicious osseous abnormality. IMPRESSION: Patchy opacity lingula may represent atelectasis versus developing infiltrate. Electronically signed by: Aimee Brewer MD (03/18/2021 10:10 PM) [facility] DICTATED and SIGNED BY: AIMEE BREWER MD DATE: 03/18/21 [id number] [] Course & Med Decision Making: Course & Med Decision Making Pertinent Labs and Imaging studies reviewed. (See chart for details) [] Dragon Disclaimer: Dragon Disclaimer: This electronic medical record was generated, in whole or in part, using a voice recognition dictation system. Departure Departure Impression: Primary Impression: Pneumonia Additional Impression: Person under investigation for COVID-19 Disposition: 01 HOME / SELF CARE / HOMELESS Condition: STABLE Referrals: CLIFTON ACEVES MD (PCP) Patient Instructions: Pneumonia, Adult Additional Instructions: You have been tested for or diagnosed with COVID-19. It is an infection caused by a new type of coronavirus. COVID-19 will cause cold-like or mild flu symptoms in most. It can cause more severe symptoms like problems breathing in some. There is no treatment for COVID-19. The body will clear the infection over time. Self-care will help to ease discomfort. Steps to Take: Self-Care Rest as needed. Healthy habits may help you feel better. Steps include: Choose healthy foods including fruits and vegetables. Drink water throughout the day. Get plenty of sleep each night. If you smoke, try to quit. It may ease breathing. Avoid alcohol. Keep Others Healthy The virus can spread to others. Droplets are released every time you sneeze or cough. The droplets can get into the mouth, nose, or eyes of people near you and lead to infection. To lower the chances of spreading COVID-19 to others: Stay at home until your doctor has said it is safe to leave. If you tested positive this will mean staying isolated until both of the following are true: At least 7 days have passed since the start of illness. You are free of fever for at least 72 hours without the use of medicine. During this time: - Avoid public areas, events, or transportation. Do not return to work or school until your doctor has said it is safe to do so. - Call ahead if you need to go to a medical center. Let them know you may have COVID-19. It will help them guide you where to go. They may also ask you to wear a facemask when you come to the office. - If you call for emergency medical services, let them know you may have COVID- 19. While at home: - Try to avoid close contact with others. Stay about 6 feet away. - If possible, spend most of your time in a separate room from others. - Use a face mask if you will be in close contact with others such as sharing a room or vehicle. - Have someone wipe down common surfaces in the home. Use household mining support worker every day on areas like doorknobs, counters, or sinks. - Cough or sneeze into a tissue. Throw the tissue away right after use. If a tissue is not available, cough or sneeze into your elbow. - Wash your hands often. Wash them after sneezing or coughing. Use soap and water and wash for at least 20 seconds. Alcohol based hand screen cleaner can be used if soap and water is not available. - Do not prepare food for others. Avoid sharing personal items like forks, spoons, or toothbrushes. - Avoid close contact with pets while you are sick. There is no evidence of the virus passing to pets. This is a safety step until more is known about this virus. Isolation can be frustrating. Social interaction can help. Keep in touch with friends and family through phone and tech options. You can still interact with others in your home, just keep a safe distance of about 6 feet. Follow-up: Your doctors office will check in with you to see if there are any changes in your health. You may be asked to keep track of symptoms to share with them. They will also let you know when you are clear to be in public again. Problems to Look Out For: Contact your doctor if your recovery is not going as you expect. Get emergency care if you have problems such as: - Trouble breathing - Nonstop chest pain or pressure - Changes in awareness, confusion, or problems waking - Lips or face have bluish color - Worsening of symptoms If you think you have an emergency, call for emergency medical services right away. As taken from [facility] Albuterol Sulfate (PROAIR HFA INHALER) 8.5 Gm Hfa.aer.ad 2 PUFF IH PRN Q4-6HRS PRN for wheezing for 21 Days, #1 INHALER 0 Refills Prov: ROSALIO RAMEY MD 03/18/21 Levofloxacin (LEVOFLOXACIN) 750 Mg Tablet 1 TAB PO DAILY for antibiotic for 4 Days, #4 TAB Prov: ROSALIO RAMEY MD 03/18/21 Prednisone (PREDNISONE) 50 Mg Tablet 1 TAB PO DAILY for steroid for 4 Days, #4 TAB Prov: ROSALIO RAMEY MD 03/18/21 Problem Qualifiers ROSALIO RAMEY MD Mar 18, 2021 21:26
[2021-03-18 21:36] LABS: BILIRUBIN,URINE NEGATIVE (NEG); CLARITY,URINE CLEAR; COLOR,URINE YELLOW; NITRITE,URINE NEGATIVE (NEG); PROTEIN,URINE 30 mg/dL (NEG-TRACE); UROBILINOGEN,URINE 0.2 mg/dL (0.2 mg/dL)
[2021-03-18 21:45] LABS: BACTERIA,URINE 0 /HPF (0-FEW)
[2021-03-18 21:46] LABS: WBC,URINE OCC /HPF (0-4)
[2021-03-18 21:48] LABS: INFLUENZA A PATIENT NEGATIVE (NEGATIVE); INFLUENZA B PATIENT NEGATIVE (NEGATIVE)
--- NOTE | 2021-03-18 22:12 | RAD ---
XR CHEST 1V 03/18/2021 9:36 PM INDICATION: Pneumonia COMPARISON: 04/23/2018 TECHNIQUE: Portable frontal view of the chest is provided. FINDINGS: The cardiomediastinal silhouette is within normal limits. There is patchy opacity in the lingula. There are no significant pleural effusions. There is no pulmonary vascular congestion. No pneumothora x. No suspicious osseous abnormality. IMPRESSION: Patchy opacity lingula may represent atelectasis versus developing infiltrate. Electronically signed by: Nellie Raygoza MD (03/18/2021 10:10 PM) [facility]
[2021-03-18] MEDS ORDERED: PRED50TA PO (22:47)
[2021-03-18] MEDS ORDERED: ALBU2.5V8 IH (22:47)
[2021-03-18] MEDS ORDERED: LEVO750T5 PO (22:47)
[2021-03-18] MEDS ORDERED: predniSONE 10 MG TABLET PO ONE (23:00)
[2021-03-18 23:51] VITALS: BP 162/96
== END 2021-03-19 00:08 | disposition home or self-care (01) ==
LOC: ER 21:14
DX: U07.1 COVID-19 (principal); J18.9 Pneumonia, unspecified organism; I10 Essential (primary) hypertension; G89.29 Other chronic pain; F17.200 Nicotine dependence, unspecified, uncomplicated; Z88.0 Allergy status to penicillin
CPT/HCPCS: 71045; 81001; 87426; 87804; 99285; J7512; U0003